=== PATIENT | male | born 1995 | race Caucasian/White ===

== ENCOUNTER 2017-11-14 19:24 | Emergency (ER) | payer OTHER ==
[~2017-11-14] VITALS: Ht 167.6 cm; Wt 72.5 kg
[2017-11-14 19:28] VITALS: Ht 167.6 cm; Wt 72.5 kg
--- NOTE | 2017-11-14 21:10 | ERD ---
ER Documentation Chief Complaint Chief Complaint left ear pain x 3 days HPI this 22 yo male pt reports left ortalgia, seen by MD today started on gtt, w/o improvement of symptoms. ROS All systems reviewed and are negative except as per history of present illness. Allergies Allergies: Coded Allergies: No Known Allergy (Unverified , 11/14/17) Physical Exam Vitals Vital Signs Date Time Temp Pulse Resp B/P Pulse Ox O2 Delivery O2 Flow Rate FiO2 11/14/17 19:28 97.4 115 20 140/90 100 Physical Exam Const: Well-nourished, well-appearing, well-hydrated obvious discomfort, crying, fighting back tears. No acute distress Head: Atraumatic Eyes: Normal Conjunctiva, PERRLA, EOMI ENT right tympanic membrane bulging, erythematous, left tympanic membrane is erythematous, retracted, membrane not visualized nasal mucosa is edematous, mucous noted, pharynx pink, uvula midline without shift, rises and falls with pronation Neck: Full range of motion..~ No meningismus. No cervical node tenderness Resp: Respirations even and unlabored, clear to auscultation bilaterally no rales wheezes or rhonchis Neur: Awake and alert Psych: Normal Mood and Affect Results 24 hrs Current Medications Medications (Trade) Dose Ordered Sig/Harshal Route PRN Reason Start Time Stop Time Status Last Admin Dose Admin Amoxicillin/ Clavulanate Potassium (Augmentin) 875 mg ONCE ONCE PO 11/14/17 21:30 11/14/17 21:31 DC 11/14/17 21:25 Acetaminophen/ Hydrocodone Bitart ([place] (5/325)) 1 tab ONCE ONCE PO 11/14/17 21:30 11/14/17 21:31 DC 11/14/17 21:24 Procedures/MDM This 22-year-old male patient presents to emergency department for reevaluation of her otalgia, patient was seen today by his primary care clinic started on [place], patient is fighting back tears, crying in pain, emergency room course includes history and physical exam, exam findings support a otitis media bilaterally with tympanic membrane not visualized on left auditory canals are clear, no evidence of canal narrowing or bloody discharge, no pus. Plan to discontinue eardrops, patient given first dose of Augmentin 875 in ER along with [place] 5/325 will be discharged home with the same prescriptions instructed to return to emergency department for worsening of symptoms, use warm compresses for pain, ibuprofen for pain less than 5/10, [place] for pain greater than 6 /10 on pain scale increase fluids, increase rest Patient is stable with no new complaints during ER course, clinically there is no current evidence to suggest meningitis, mastoiditis, parotiditis peritonsillar abscess or any other emergent condition appearing to require further evaluation or hospitalization. I feel the patient is stable for discharge at this time. I have discussed results, examination findings, the treatment plan with the patient and family present prior to discharge. Indications for emergent reevaluation, side effects of medication were also discussed. All questions were answered. Patient verbalizes understanding and agrees with plan of care. Departure Diagnosis: Primary Impression: Otitis media Otitis media type: suppurative Chronicity: acute Laterality: bilateral Recurrence: not specified as recurrent Spontaneous tympanic membrane rupture: with spontaneous rupture Qualified Code: H66.013 - Acute suppurative otitis media of both ears with spontaneous rupture of tympanic membranes, recurrence not specified Condition: Good Patient Instructions: Otitis Media, Abx Tx (Adult) Additional Instructions: Thank you for for coming to [facility] for your care today. Please ask your nurse or provider if you have questions about your care today and do not leave until all your questions have been answered. Please use any medications given as directed and follow-up with your doctor (or the doctor you were referred to) in the next 2-3 days. If you do not have a primary care doctor you may follow up at the [facility] (listed below). You may also use motrin and tylenol as needed for fever and/or pain unless instructed otherwise by your provider or nurse. Indications for more urgent follow-up have been discussed, but you may return to the Emergency Department at ANY time for any worrisome or worsening symptoms. If you have abdominal pain, please know that no test or exam you received is perfect and you should follow up within 8 hours for continued pain. If you had any imaging studies today, such as an X-Ray or CT Scan, these studies will be reviewed later by a radiologist. You will be called if there are important findings that were not identified today, so make sure the contact information you provided at registration is correct. If you received any narcotic pain control medicine today, such as Vicodin, Morphine or Dilaudid, your coordination and judgment may be affected for a number of hours. Please do not drive or operate heavy machinery, and you may want someone to assist you at home. If you were given a prescription for narcotic medication, be aware that it is very addictive- use sparingly and only if necessary. NAOMIE ENG Nov 14, 2017 21:10
[2017-11-14] MEDS ORDERED: AMOXICILLIN/CLAV 875 MG TAB PO ONE ×2 (21:30→22:30)
[2017-11-14] MEDS ORDERED: HYDROCODONE/APAP (5/325) TAB PO ONE ×2 (21:30→22:30)
[2017-11-14] MEDS ORDERED: IBUPROFEN 600 MG TAB PO ONE (22:30)
[2017-11-14] MEDS ORDERED: HYDR-906 PO (22:31)
[2017-11-14] MEDS ORDERED: AMOX1TAB10 PO (22:31)
[2017-11-14] MEDS ORDERED: IBUP-1542 PO (22:31)
[2017-11-14 23:00] VITALS: BP 135/87; PULSE 105; RESP 20; TEMP 98.4
== END 2017-11-14 23:01 | disposition home or self-care (01) ==
LOC: FTE 19:24
DX: H66.013 Acute suppurative otitis media with spontaneous rupture of ear drum, bilateral (principal)
CPT/HCPCS: Z7502; Z7610; 99284